=== PATIENT | male | born 1990 | race African-American/Black ===

== ENCOUNTER 2024-04-17 16:45 | Emergency (ER) | payer OTHER ==
--- NOTE | 2024-04-17 17:57 | RAD REPORT ---
EXAMINATION: CT ABDOMEN AND PELVIS WITHOUT CONTRAST CLINICAL INDICATION: urinary retention TECHNIQUE: CT abdomen and pelvis was performed, without IV contrast, as per department protocol. Axia l, sagittal and coronal reconstructions were obtained. One or more of the following dose reduction techniques were used: Automated exposure control, adjustment of the mA and kV according to the patien t size, and iterative reconstruction. Unless otherwise specified, incidental findings do not require dedicated imaging follow-up. COMPARISON: No prior exam. FINDINGS: The lack of intravenous contrast limits the sensitivity of this exam for evaluation of solid visceral organs, vascular structures, and retroperitoneum. LOWER CHEST: The visualized lung bases are clear. LIVER:Normal in size and contour. No focal lesion. Grossly unremarkable gallbladder. SPLEEN: Normal size. No focal lesion. PANCREAS: No mass, ductal dilation, or santhosh-pancreatic fluid. ADRENALS: Normal; no mass. KIDNEYS AND URETERS: Normal size and contour. No hydronephrosis. URINARY BLADDER: Normal contour. GASTROINTESTINAL TRACT: No evidence of bowel obstruction, significant free fluid, free air or abscess . APPENDIX: Normal appendix. LYMPH NODES: No lymphadenopathy. MUSCULOSKELETAL: Bilateral femoral hardware. ADDITIONAL FINDINGS: None. IMPRESSION: No acute or concerning abnormalities in the abdomen or pelvis, with evaluation limited by lack of IV contrast.
[2024-04-17 18:11] LABS: Absolute Basophils 0.1 K/uL (0-0.5); Absolute Eosinophils 0.1 K/uL (0-0.5); Absolute Lymphocytes (CBC) 1.7 K/uL (0.7-4.9); Absolute Monocytes 0.8 K/uL (0.1-1.3); Absolute Neutrophil 5.3 K/uL (1.8-8.0); Basophils % 1.1 % (0-1.3); Eosinophils % 1.5 % (0-4.4); Hematocrit 46.3 % (39.6-49.0); Hemoglobin 15.7 g/dL (13.6-17.9); Lymphocytes % 21.2 % (15.3-44.8); MCH 29.8 pg (27.0-35.0); MCHC 33.8 g/dL (32.0-36.0); MCV 88.1 fL (80-100); Monocytes % 10.4 % (3.3-12.3); Neutrophils % 65.8 % (41.7-73.7); Nucleated Red Blood Cells % 0.3 % (0-0); Platelets 322 thou/uL (152-406); RBC Red Blood Cell Count 5.26 M/uL (4.33-5.43); Red Cell Distribution Width 13.4 % (12.1-15.2)
[2024-04-17 18:30] LABS: Anion Gap 8.1 mEq/L (5.0-15.0); Potassium 4.1 mEq/L (3.5-5.1)
[2024-04-17 18:41] LABS: Specific Gravity 1.024 (1.005-1.030); Sqamous Epithelial <5 /HPF (None Seen); Urine Bacteria None Seen /HPF (<20); Urine Bilirubin NEGATIVE (Negative); Urine Blood 1+ (Negative); Urine Clarity Clear (Clear); Urine Color Light-Yellow (Yellow); Urine Culture Reflex Order NOT NEEDED; Urine Glucose NEGATIVE (Negative); Urine Ketones NEGATIVE (Negative); Urine Microscopic Reflex YN ORDER UMIC; Urine Mucus Slight /HPF (None Seen); Urine Nitrite NEGATIVE (Negative); Urine Protein TRACE (Negative); Urine RBC 21-50 /HPF (None Seen); Urine Urobilinogen Normal (Normal); Urine WBC <5 /HPF (<5)
--- NOTE | 2024-04-17 18:55 | EDPHYS ---
Physician Documentation [facility] Name: Antonella Anderson Age: 33 yrs Sex: Male : 1990 Arrival Date: 04/17/2024 Time: 16:45 Bed 24 Private MD: ED Physician Yoel Reveles HPI: 04/17 23:35 This 33 yrs old Black Male presents to ER via Wheelchair with complaints of urinary kb retention. 23:35 Pt is a 33 year old male who presents for urinary retention that started yesterday. kb States he feels like he needs to urinate and then is only able to urinate a few drops. States he had pain after urination yesterday. Denies fever, abd pain, n/v/d. Historical: - Allergies: 17:04 No Known Allergies; jb4 - PMHx: 17:04 HTN; jb4 - PSHx: 17:04 KELLY hip replacement, knee replacement, rods in femurs; jb4 - Immunization history:: Adult Immunizations up to date. - Infectious Disease History:: Denies. - Social history:: Smoking status: Patient denies any tobacco usage or history of. ROS: 23:34 Constitutional: As per HPI kb Exam: 23:34 Constitutional: This is a well developed, well nourished patient who is awake, alert, kb and in no acute distress. Head/Face: Normocephalic, atraumatic. ENT: Moist Mucous membranes Cardiovascular: Regular rate Respiratory: Respirations even and unlabored. No increased work of breathing. Talking in full sentences Abdomen/GI: Soft, non-tender. No distention Back: No spinal tenderness. No costovertebral tenderness. Full range of motion. Skin: Warm, dry with normal turgor. Normal color. MS/ Extremity: Pulses equal, no cyanosis. Neurovascular intact. Full, normal range of motion. Neuro: Awake and alert, GCS 15, oriented to person, place, time, and situation. 23:34 : a mehta is noted, urine is clear, kb Vital Signs: 17:01 BP 138 / 82; Pulse 87; Resp 16; Temp 98.5; Pulse Ox 100% ; Weight 106.59 kg; Height 5 jb4 ft. 11 in. ; 18:09 BP 118 / 78; Pulse 77; Resp 16; Pulse Ox 99% on R/A; jb4 19:15 BP 121 / 86; Pulse 87; Resp 16; Pulse Ox 99% on R/A; jb4 17:01 Body Mass Index 32.78 (106.59 kg, 180.34 cm) jb4 MDM: 16:57 Medical Screening Exam initiated kb 23:34 Differential diagnosis: UTI, urinary retention, Mehta catheter problem, prostatitis. kb Data reviewed: vital signs, nurses notes. Counseling: I had a detailed discussion with the patient and/or guardian regarding the historical points, exam findings, and any diagnostic results supporting the discharge/admit diagnosis, lab results, radiology results, the need for outpatient follow up, a urologist, to return to the emergency department if symptoms worsen or persist or if there are any questions or concerns that arise at home. 04/17 17:15 Order name: Urinalysis w/ reflexes; Complete Time: 18:44 kb 04/17 17:15 Order name: CBC with Diff; Complete Time: 18:12 kb 04/17 17:15 Order name: Basic Metabolic Panel; Complete Time: 18:35 kb 04/17 17:15 Order name: CT Stone Protocol; Complete Time: 18:02 kb 04/17 17:15 Order name: IV Start; Complete Time: 18:05 kb 04/17 17:30 Order name: Misc. Order: Please uncuff patient for CT; Complete Time: 17:55 jb4 Administered Medications: 19:35 Drug: Ketorolac IVP 15 mg IVP once Route: IVP; Site: right antecubital; jb4 19:35 Follow up: Response: Medication administered at discharge. jb4 Disposition: 04/18 07:43 Co-signature as Attending Physician, Yoel Reveles MD I reviewed the patient's care rn provided by the Advanced Practice Provider and agree with the diagnosis and treatment plan. Disposition Summary: 04/17/24 18:55 Discharge Ordered Notes: Location: Home kb Condition: Stable kb Diagnosis - Retention of urine, unspecified kb Followup: kb - With: Emergency Department - When: As needed - Reason: Worsening of condition Followup: kb - With: Private Physician - When: 2 - 3 days - Reason: Recheck today's complaints, Continuance of care, Re-evaluation by your physician Discharge Instructions: - Discharge Summary Sheet kb - Acute Urinary Retention, Male, [id number] kb - Indwelling Urinary Catheter Care, Adult, [id number] kb Forms: - Medication Reconciliation Form kb - Antibiotic Education kb - Prescription Opioid Use kb - Patient Portal Instructions kb - Leadership Thank You Letter kb Signatures: Dispatcher [employer] Olivia Benedict, HOMEMAKING REHABILITATION CONSULTANT-C HOMEMAKING REHABILITATION CONSULTANT-Yoel Prabhakar MD MD rn Bryson, James, RN RN jb4 Corrections: (The following items were deleted from the chart) 04/17 17:05 17:04 PMHx: None; jb4 jb4
--- NOTE | 2024-04-17 18:55 | ER ---
Nurse's Notes [facility] Name: Antonella Anderson Age: 33 yrs Sex: Male : 1990 Arrival Date: 04/17/2024 Time: 16:45 Bed 24 Private MD: Diagnosis: Retention of urine, unspecified Presentation: 04/17 17:01 Chief complaint: Patient states: I was not able to urinate at the skilled nursing. they put a jb4 mehta in and now I can urinate. I think I may have a UTI. I still have some tenderness in my penis after the mehta. Coronavirus screen: At this time, the client does not indicate any symptoms associated with coronavirus-19. Ebola Screen: No symptoms or risks identified at this time. Initial Sepsis Screen: Does the patient meet any 2 criteria? No. Patient's initial sepsis screen is negative. Does the patient have a suspected source of infection? No. Patient's initial sepsis screen is negative. Risk Assessment: Do you want to hurt yourself or someone else? Patient reports no desire to harm self or others. Onset of symptoms was April 17, 2024. Transition of care: patient was not received from another setting of care. 17:01 Method Of Arrival: Wheelchair jb4 17:01 Acuity: SHIRA 4 jb4 Historical: - Allergies: 17:04 No Known Allergies; jb4 - PMHx: 17:04 HTN; jb4 - PSHx: 17:04 KELLY hip replacement, knee replacement, rods in femurs; jb4 - Immunization history:: Adult Immunizations up to date. - Infectious Disease History:: Denies. - Social history:: Smoking status: Patient denies any tobacco usage or history of. Screenin:35 [facility] ED Fall Risk Assessment (Adult) History of falling in the last 3 months, jb4 including since admission No falls in past 3 months (0 pts) Confusion or Disorientation No (0 pts) Intoxicated or Sedated No (0 pts) Impaired Gait Yes (1 pt) Mobility Assist Device Used Yes (1 pt) Altered Elimination No (0 pt) Score/Fall Risk Level 0 - 2 = Low Risk Oriented to surroundings, Maintained a safe environment. Abuse screen: Denies threats or abuse. Nutritional screening: No deficits noted. Tuberculosis screening: No symptoms or risk factors identified. Assessment: 17:34 General: Appears in no apparent distress. comfortable, Behavior is calm, cooperative, jb4 appropriate for age. Pain: Complains of pain in shaft of penis Pain does not radiate. Pain currently is 5 out of 10 on a pain scale. Neuro: Level of Consciousness is awake, alert, obeys commands, Oriented to person, place, time, situation. Cardiovascular: Patient's skin is warm and dry. Respiratory: Airway is patent Respiratory effort is even, unlabored, Respiratory pattern is regular, symmetrical. : Mehta in place to gravity drainage Placed by skilled nursing medical personal. Derm: Skin is intact, Skin is pink, warm \T\ dry. Musculoskeletal: Circulation, motion, and sensation intact. Range of motion:. 18:30 Reassessment: Patient appears in no apparent distress at this time. Patient and/or jb4 family updated on plan of care and expected duration. Pain level reassessed. Patient is alert, oriented x 3, equal unlabored respirations, skin warm/dry/pink. 19:37 Reassessment: Patient appears in no apparent distress at this time. Patient and/or jb4 family updated on plan of care and expected duration. Pain level reassessed. Patient is alert, oriented x 3, equal unlabored respirations, skin warm/dry/pink. Vital Signs: 17:01 BP 138 / 82; Pulse 87; Resp 16; Temp 98.5; Pulse Ox 100% ; Weight 106.59 kg; Height 5 jb4 ft. 11 in. ; 18:09 BP 118 / 78; Pulse 77; Resp 16; Pulse Ox 99% on R/A; jb4 19:15 BP 121 / 86; Pulse 87; Resp 16; Pulse Ox 99% on R/A; jb4 17:01 Body Mass Index 32.78 (106.59 kg, 180.34 cm) jb4 ED Course: 16:54 Patient arrived in ED. jb4 16:57 Olivia Marinelli F[facility]-C [facility] kb 16:57 Yoel Reveles MD is Attending Physician. kb 17:01 Charan Gregorio, LEIA is Primary Nurse. jb4 17:04 Triage completed. jb4 17:04 Arm band placed on right wrist. jb4 17:35 Patient has correct armband on for positive identification. Bed in low position. Call [facility] light in reach. Side rails up X 1. Provided Education on: plan of care. 17:35 No provider procedures requiring assistance completed. jb4 17:48 CT Stone Protocol In Process Unspecified. EDMS 18:05 Basic Metabolic Panel Sent. jb4 18:05 CBC with Diff Sent. jb4 18:05 Urinalysis w/ reflexes Sent. jb4 19:15 IV discontinued, intact, bleeding controlled, No redness/swelling at site. Pressure jb4 dressing applied. Administered Medications: 19:35 Drug: Ketorolac IVP 15 mg IVP once Route: IVP; Site: right antecubital; jb4 19:35 Follow up: Response: Medication administered at discharge. jb4 Medication: 19:15 VIS not applicable for this client. jb4 Outcome: 18:55 Discharge ordered by . kb 19:15 Discharged to home ambulatory, jb4 19:15 Condition: stable 19:15 Discharge instructions given to patient, Instructed on discharge instructions, follow up and referral plans. Demonstrated understanding of instructions, follow-up care, 19:38 Patient left the ED. jb4 Signatures: Dispatcher [employer] EDOlivia Madrigal, MARIA GUADALUPE-C AGRICULTURAL AND FORESTRY SUPERVISOR-Charan Reno, RN RN jb4 Corrections: (The following items were deleted from the chart) 17:05 17:04 PMHx: None; jb4 jb4
[2024-04-17] MEDS ORDERED: KETOROLAC 30 MG/ML INJ ONE (19:28)
[2024-04-17 20:23] VITALS: TEMP 98.5
[2024-04-17 20:24] VITALS: O2SAT 99
[2024-04-17 20:26] VITALS: BP 121/86
== END 2024-04-17 19:38 | disposition home or self-care (01) ==
LOC: ER 16:45
DX: R33.9 Retention of urine, unspecified (principal); Z96.643 Presence of artificial hip joint, bilateral; Z96.653 Presence of artificial knee joint, bilateral
CPT/HCPCS: 36415; 74176; 76377; 80048; 81001; 85025; 96374; 99284